=== PATIENT | female | born 1990 | race Caucasian/White ===

== ENCOUNTER 2021-09-03 09:52 | Inpatient (IN) | payer SELFPAY ==
[2021-09-03] MEDS ORDERED: OXYTOCIN 10 UNIT/1 ML INJ IM PRN (10:54)
[2021-09-03] MEDS ORDERED: ACETAMINOPHEN 325 MG TAB PO PRN ×2 (10:54→22:59)
[2021-09-03] MEDS ORDERED: TERBUTALINE 1 MG/1 ML INJ SUB-Q PRN (10:54)
[2021-09-03] MEDS ORDERED: LIDOCAINE (2%) 20 MG/1 ML VIAL 20 ML MDV INFILTRATI ONE ×2 (10:54→19:52)
[2021-09-03] MEDS ORDERED: ePHEDrine SULFATE 50 MG/1 ML INJ IV PRN ×2 (10:54→17:00)
[2021-09-03] MEDS ORDERED: LOPERAMIDE 2 MG CAP PO PRN (10:54)
[2021-09-03] MEDS ORDERED: MINERAL OIL 30 ML ORAL LIQD PO PRN (10:54)
[2021-09-03] MEDS ORDERED: miSOPROStol 200 MCG TAB PR PRN (10:54)
[2021-09-03] MEDS ORDERED: BUTORPHANOL 2 MG/1 ML INJ IV PRN ×2 (10:54)
[2021-09-03] MEDS ORDERED: NALOXONE 0.4 MG/1 ML INJ IV PRN (10:54)
[2021-09-03] MEDS ORDERED: ONDANSETRON 4 MG/2 ML INJ IV PRN ×2 (10:54→22:59)
[2021-09-03] MEDS ORDERED: CARBOPROST TROMETHAMINE 250 MCG/1 ML INJ IM PRN (10:54)
[2021-09-03] MEDS ORDERED: OXYTOCIN DRIP 30 UNITS/500 ML BAG IV SCH ×3 (11:00→23:00)
--- NOTE | 2021-09-03 11:44 | History and Physical Report ---
History of Present Illness Date of examination: 09/03/21 Date of admission: 09/03/21 09:52 Chief complaint: Presents for a scheduled Induction of Labor due to Postdates and Chronic Hypertension History of present illness: care at [facility], course complicated by a UTI (treated with Macrobid), and CHTN (no meds). Past History Past Medical History: [facility] ([facility]s [facility] 2 [facility]) Past Surgical History: no surgical history SPEECH/LANGUAGE THERAPIST History: abnormal PAP smear Family/Genetic History: none Social history: no significant social history - Obstetrical History Expected Date of Delivery: 08/26/21 Actual Gestation: 41 Week(s) 1 Day(s) : 4 Para: 3 Hx # Term Pregnancies: 3 Number of Living Children: 3 #1 Infant Gender: Female year: 2,[birth year] Birthweight: 3.175 kg Method of Delivery: Vaginal Gestational age at delivery: 40 Complications: none #2 Gender: Female year: 2,[birth year] Birthweight: 3.175 kg Method of Delivery: Vaginal Gestational age at delivery: 40 #3 Gender: Female year: 2,016 Birthweight: 3.175 kg Method of Delivery: Vaginal Gestational age at delivery: 40 Medications and Allergies Allergies Allergy/AdvReac Type Severity Reaction Status Date / Time No Known Allergies Allergy Unverified 09/03/21 11:36 Active Meds: Active Medications Acetaminophen (Acetaminophen 325 Mg Tab) 650 mg PO Q4H PRN PRN Reason: Pain, Mild (1-3) Butorphanol Tartrate (Butorphanol 2 Mg/1 Ml Inj) 1 mg IV Q2H PRN PRN Reason: Pain, Moderate(4-6) LABOR PAIN Butorphanol Tartrate (Butorphanol 2 Mg/1 Ml Inj) 2 mg IV Q2H PRN PRN Reason: Pain , Severe (7-10) Carboprost Tromethamine (Carboprost Tromethamine 250 Mcg/1 Ml Inj) 250 mcg IM ONCE PRN PRN Reason: Uterine Bleeding Ephedrine Sulfate (Ephedrine Sulfate 50 Mg/1 Ml Inj) 10 mg IV Q2M PRN PRN Reason: Hypotension Oxytocin/Sodium Chloride (Pitocin/Ns 30 Unit/500ml) 30 units in 500 mls @ 4 mls/hr IV TITR SUSIE; Protocol Lactated Ringer's (Lactated Ringers) 1,000 mls @ 125 mls/hr IV DIRECT SUSIE Oxytocin/Sodium Chloride (Pitocin/Ns 30 Unit/500ml) 30 units in 500 mls @ 40 mls/hr IV TITR SUSIE; Protocol Lidocaine (Lidocaine (2%) 20 Mg/1 Ml Vial 20 Ml Mdv) 20 ml INFILTRATI ONCE ONE Stop: 09/03/21 10:55 Loperamide HCl (Loperamide 2 Mg Cap) 2 mg PO ONCE PRN PRN Reason: give with Hemabate Mineral Oil (Mineral Oil 30 Ml Oral Liqd) 30 ml PO QHS PRN PRN Reason: Constipation Misoprostol (Misoprostol 200 Mcg Tab) 800 mcg LA ONCE PRN PRN Reason: Uterine Bleeding Naloxone HCl (Naloxone 0.4 Mg/1 Ml Inj) 0.1 mg IV Q2MIN PRN PRN Reason: Res Rate </= 8 or 02 SAT < 92% Ondansetron HCl (Ondansetron 4 Mg/2 Ml Inj) 4 mg IV Q8H PRN PRN Reason: Nausea And Vomiting Oxytocin (Oxytocin 10 Unit/1 Ml Inj) 10 unit IM ONCE PRN PRN Reason: Uterine Bleeding Terbutaline Sulfate (Terbutaline 1 Mg/1 Ml Inj) 0.25 mg SUB-Q ONCE PRN PRN Reason: Hyperstimulation/Hypertonicity Review of Systems All systems: negative - Vital Signs Vital signs: Vital Signs Pulse BP Pulse Ox 56 L 119/75 99 09/03/21 10:40 09/03/21 10:40 09/03/21 10:40 Temp Pulse Resp BP Pulse Ox 98.5 F 59 L 18 119/75 98 09/03/21 11:35 09/03/21 11:35 09/03/21 11:35 09/03/21 11:35 09/03/21 11:35 - Physical Exam Breasts: Positive: normal Cardiovascular: Regular rate Lungs: Positive: Clear to auscultation, Normal air movement Abdomen: Positive: normal appearance, soft, normal bowel sounds Genitourinary (Female): Positive: normal external genitalia, normal perenium Vagina: Positive: normal moisture Uterus: Positive: enlarged - Obstetrical FHR: category 1 Uterine Contraction Monitor Mode: External Cervical Dilatation: 2 (intact, vtx) Cervical Effacement Percentage: 50 station: -3 Uterine Contraction Pattern: Irregular Uterine Tone Measurement Phase: Resting Uterine Contraction Intensity: Mild Results All other labs normal. Assessment and Plan A: IUP @ 41 1/7 Weeks Category I Tracing CHTN GBS Negative P: Admit to L&D Per Routine Orders PIH Labs Pitocin Induction
[2021-09-03 12:00] LABS: Hematocrit 35.5 % (30.3-42.9); Mean Corpuscular HGB Conc 34 % (30-34); Mean Corpuscular Volume 90 fl (79-97); Platelet Count 213 K/mm3 (140-440); Red Blood Count 3.93 M/mm3 (3.65-5.03); Red Cell Distribution Width 13.7 % (13.2-15.2)
[2021-09-03 12:18] LABS: Alanine Aminotransferase 12 units/L (7-56); Uric Acid 4.8 mg/dL (3.5-7.6)
[2021-09-03] MEDS: LACTATED RINGERS 1,000 ML IV SCH ×4 (12:30→18:24)
[2021-09-03] MEDS ORDERED: ePHEDrine SULFATE 50 MG/1 ML INJ ONE (16:19)
--- NOTE | 2021-09-03 16:28 | Anesthesia Consultation ---
Anesthesia Consult and Med Hx Date of service: 09/03/21 - Airway Anesthetic Teeth Evaluation: Good ROM Head & Neck: Adequate Mental/Hyoid Distance: Adequate Mallampati Class: Class II Intubation Access Assessment: Probably Good - Pulmonary Exam CTA: Yes - Cardiac Exam Cardiac Exam: RRR - Pre-Operative Health Status ASA Pre-Surgery Classification: ASA3 Proposed Anesthetic Plan: Epidural - Pulmonary Hx Asthma: No - Cardiovascular System Hx Hypertension: Yes - Central Nervous System Hx Seizures: No Hx Psychiatric Problems: No - Endocrine Hx Renal Disease: No Hx Hypothyroidism: No Hx Hyperthyroidism: No - Hematic Hx Anemia: No Hx Sickle Cell Disease: No - Other Systems Hx Alcohol Use: No
[2021-09-03] MEDS ORDERED: NALOXONE 2 MG/2 ML INJ IV PRN (17:00)
[2021-09-03] MEDS ORDERED: fentaNYL-BUPIV 2 MCG/ML-0.125% 200 MCG/100 ML BAG EPIDURAL SCH (17:00)
[2021-09-03] MEDS ORDERED: WITCH HAZEL/ GLYCERIN PAD TP PRN (22:59)
[2021-09-03] MEDS ORDERED: BENZOCAINE/MENTHOL 20/0.5% TOP SPRAY 56 GM TP PRN (22:59)
[2021-09-03] MEDS ORDERED: LANOLIN/ZINC/DIMETHICONE (LANSINOH) 7 GM TP PRN ×2 (22:59)
[2021-09-03] MEDS ORDERED: PROMETHAZINE 25 MG RECT SUPP PR PRN (22:59)
[2021-09-03] MEDS ORDERED: diphenhydrAMINE 25 MG CAP PO PRN (22:59)
[2021-09-03] MEDS ORDERED: PROMETHAZINE 25 MG TAB PO PRN (22:59)
[2021-09-03] MEDS ORDERED: MAGNESIUM HYDROXIDE (MOM) ORAL LIQD UDC PO PRN (22:59)
[2021-09-03] MEDS ORDERED: oxyCODONE /ACETAMINOPHEN 5-325MG TAB PO PRN (22:59)
[2021-09-03] MEDS ORDERED: HYDROCORTISONE 25 MG RECTAL SUPP PR PRN (22:59)
--- NOTE | 2021-09-03 23:02 | Procedure Note ---
OB Delivery Note - Delivery Date of Delivery: 09/03/21 Surgeon: MAILE NAVA JR Estimated blood loss: 300cc - Vaginal Delivery presentation: vertex Delivery position: OA Intrapartum events: none Delivery induction: oxytocin Delivery augmentation: rupture of membranes Delivery monitor: external FHT, external uterine Delivery placenta: spontaneous Episiotomy: none Delivery laceration: 2nd degree Delivery repair: vicryl Anesthesia: epidural Delivery comments: Status post spontaneous vaginal delivery of male at 2238. Weight 3210 g. Height 20 inches. Apgars 8/9. Second degree perineal repair with 2-0 Vicryl. Fundus firm below the umbilicus. - A at 1 minute: 8 at 5 minutes: 9 Gender: Male
--- NOTE | 2021-09-04 08:51 | Progress Note ---
Assessment and Plan A: S/P P: Continue routine pp orders Awaiting H&H results D/C home tomm if stable Subjective - Subjective Date of service: 09/04/21 Principal diagnosis: s/p Patient reports: appetite normal, voiding normally, pain well controlled, ambulating normally [place]: doing well, bottle feeding Objective - Vital Signs Latest vital signs: Vital Signs Temp Pulse Resp BP BP Pulse Ox Pulse Ox 09/04/21 04:27 98.6 F 69 20 107/53 95 09/04/21 00:32 98.7 F 65 18 130/73 98 09/04/21 00:25 98.7 F 64 18 129/104 99 09/03/21 23:57 70 99 09/03/21 23:53 64 135/66 09/03/21 23:52 66 98 09/03/21 23:47 64 99 09/03/21 23:42 71 98 09/03/21 23:37 70 98 09/03/21 23:32 77 98 09/03/21 23:30 98 09/03/21 23:27 68 98 09/03/21 23:23 70 136/66 09/03/21 23:22 69 98 09/03/21 23:17 73 99 09/03/21 23:12 74 99 09/03/21 23:07 76 99 09/03/21 23:02 71 98 09/03/21 22:57 79 99 09/03/21 22:53 78 130/61 09/03/21 22:52 77 99 09/03/21 22:47 98.3 F 77 99 09/03/21 22:42 76 99 09/03/21 22:37 80 99 09/03/21 22:32 74 100 09/03/21 22:27 78 99 09/03/21 22:22 68 136/69 98 09/03/21 22:17 68 99 09/03/21 22:12 66 98 09/03/21 22:07 64 98 09/03/21 22:06 63 130/69 09/03/21 22:02 63 98 09/03/21 21:57 67 99 09/03/21 21:52 68 98 09/03/21 21:51 62 120/62 09/03/21 21:47 63 98 09/03/21 21:42 64 99 09/03/21 21:37 67 98 09/03/21 21:36 63 122/63 09/03/21 21:32 66 98 09/03/21 21:27 68 98 09/03/21 21:22 61 98 09/03/21 21:21 63 122/63 09/03/21 21:17 62 98 09/03/21 21:12 62 98 09/03/21 21:07 63 98 09/03/21 21:06 63 119/60 09/03/21 21:02 65 98 09/03/21 20:57 74 98 09/03/21 20:52 69 98 09/03/21 20:51 67 119/59 09/03/21 20:47 64 98 09/03/21 20:42 64 99 09/03/21 20:37 65 98 09/03/21 20:36 68 116/61 09/03/21 20:32 63 98 09/03/21 20:27 63 99 09/03/21 20:22 68 99 09/03/21 20:21 59 L 118/58 09/03/21 20:17 63 99 09/03/21 20:12 67 99 09/03/21 20:07 65 99 09/03/21 20:06 62 126/62 09/03/21 20:02 61 99 09/03/21 19:57 66 99 09/03/21 19:52 61 99 09/03/21 19:51 60 124/58 09/03/21 19:47 62 99 09/03/21 19:42 62 99 09/03/21 19:37 66 99 09/03/21 19:36 63 120/57 09/03/21 19:32 61 99 09/03/21 19:27 62 99 09/03/21 19:22 65 99 09/03/21 19:21 62 112/56 09/03/21 19:17 65 99 09/03/21 19:12 74 99 09/03/21 19:10 100 09/03/21 19:08 98.3 F 20 100 09/03/21 19:07 66 130/61 100 09/03/21 19:06 66 95/43 09/03/21 19:02 63 100 09/03/21 18:57 63 99 09/03/21 18:52 64 102/54 99 09/03/21 18:47 66 100 09/03/21 18:42 63 99 09/03/21 18:37 63 99 09/03/21 18:36 67 114/55 09/03/21 18:32 73 99 09/03/21 18:27 65 99 09/03/21 18:22 70 100 09/03/21 18:20 67 124/58 09/03/21 18:18 63 116/56 09/03/21 18:17 64 125/59 99 09/03/21 18:15 67 99/57 09/03/21 18:12 65 89/54 99 09/03/21 18:10 62 91/52 09/03/21 18:08 62 95/54 09/03/21 18:07 62 89/52 99 09/03/21 18:05 97.8 F 09/03/21 18:04 60 105/55 09/03/21 18:03 63 103/59 09/03/21 18:02 61 99 09/03/21 18:00 64 96/48 09/03/21 17:58 63 106/51 09/03/21 17:57 67 100 09/03/21 17:56 65 116/59 09/03/21 17:55 61 104/55 09/03/21 17:53 63 114/55 09/03/21 17:52 64 99 09/03/21 17:50 63 94/51 09/03/21 17:48 63 99/52 09/03/21 17:47 64 95/52 99 09/03/21 17:45 64 111/55 09/03/21 17:43 65 97/54 09/03/21 17:42 66 100 09/03/21 17:41 62 128/62 09/03/21 17:38 60 95/50 09/03/21 17:37 61 111/54 99 09/03/21 17:34 61 93/50 09/03/21 17:32 61 102/54 99 09/03/21 17:30 61 98/56 09/03/21 17:28 63 94/53 09/03/21 17:27 63 99 09/03/21 17:26 67 101/57 09/03/21 17:24 63 103/55 09/03/21 17:22 73 98/55 99 09/03/21 17:20 64 107/58 09/03/21 17:18 67 111/55 09/03/21 17:17 72 99 09/03/21 17:16 69 106/57 09/03/21 17:14 68 107/55 09/03/21 17:12 70 105/57 99 09/03/21 17:10 74 111/59 09/03/21 17:08 74 111/55 09/03/21 17:07 70 120/59 99 09/03/21 17:04 73 127/71 09/03/21 17:02 67 99 09/03/21 17:01 66 124/66 09/03/21 16:58 62 104/62 09/03/21 16:57 65 100 09/03/21 16:56 66 111/56 09/03/21 16:55 68 119/56 09/03/21 16:53 69 118/67 09/03/21 16:52 68 100 09/03/21 16:51 67 126/59 09/03/21 16:47 76 99 09/03/21 16:42 68 99 09/03/21 16:37 67 99 09/03/21 16:32 64 99 09/03/21 16:27 71 99 09/03/21 16:25 67 153/84 09/03/21 16:22 65 99 09/03/21 16:17 62 99 09/03/21 16:05 68 99 09/03/21 16:00 73 99 09/03/21 15:55 72 99 09/03/21 15:53 66 145/77 09/03/21 15:50 69 99 09/03/21 15:45 64 99 09/03/21 15:40 65 99 09/03/21 15:35 71 99 09/03/21 15:30 70 98 09/03/21 15:25 61 98 09/03/21 15:23 62 120/68 09/03/21 15:20 66 97 09/03/21 15:15 64 98 09/03/21 15:10 60 98 09/03/21 15:05 63 98 09/03/21 15:04 98.3 F 09/03/21 15:00 72 98 09/03/21 14:55 67 99 09/03/21 14:54 63 122/70 09/03/21 14:50 64 97 09/03/21 14:45 71 97 09/03/21 14:40 63 98 09/03/21 14:35 65 98 09/03/21 14:30 76 96 09/03/21 14:25 71 97 09/03/21 14:24 63 120/74 09/03/21 14:20 63 98 09/03/21 14:15 65 97 09/03/21 14:10 64 97 09/03/21 14:05 64 96 09/03/21 14:00 59 L 98 09/03/21 13:55 64 97 09/03/21 13:54 60 129/67 09/03/21 13:50 65 96 09/03/21 13:45 61 97 09/03/21 13:40 64 96 09/03/21 13:35 61 95 09/03/21 13:30 55 L 99 09/03/21 13:25 58 L 99 09/03/21 13:24 54 L 143/78 09/03/21 13:20 63 100 09/03/21 13:15 54 L 99 09/03/21 13:10 64 99 09/03/21 13:05 60 98 09/03/21 13:00 60 99 09/03/21 12:55 54 L 99 09/03/21 12:53 54 L 121/70 09/03/21 12:50 59 L 99 09/03/21 12:45 61 99 09/03/21 12:40 56 L 100 09/03/21 12:35 58 L 99 09/03/21 12:30 58 L 99 09/03/21 12:25 59 L 99 09/03/21 12:23 61 112/67 09/03/21 12:20 59 L 98 09/03/21 12:15 58 L 98 09/03/21 12:10 59 L 98 09/03/21 12:05 57 L 99 09/03/21 12:00 61 99 09/03/21 11:55 60 98 09/03/21 11:53 57 L 124/69 09/03/21 11:50 63 98 09/03/21 11:45 61 99 09/03/21 11:40 61 98 09/03/21 11:35 98.5 F 60 18 119/75 99 09/03/21 11:30 62 99 09/03/21 11:25 58 L 99 09/03/21 11:23 61 110/59 09/03/21 11:20 58 L 99 09/03/21 11:15 56 L 99 09/03/21 11:10 58 L 99 09/03/21 11:05 58 L 98 09/03/21 11:00 61 98 09/03/21 10:55 59 L 99 09/03/21 10:50 56 L 99 09/03/21 10:45 60 99 09/03/21 10:40 57 L 119/75 99 Intake and Output 09/03/21 09/04/21 09/04/21 22:59 06:59 14:59 Intake Total 3060.000 600 Output Total 1100 400 Balance 1960.000 200 Intake: IV 3060.000 Lactated Ringers 1,000 ml 3060.000 @ 125 mls/hr IV DIRECT SUSIE Rx#:[id number] Oral 240 Intake, Free Water 360 Output: Urine 1100 400 Indwelling Catheter 1000 Uretheral ([place]) 100 Void 400 Other: Total, Intake Amount 240 Total, Output Amount 1000 400 # Voids Void 1 Estimated Blood Loss 300 - Exam Breasts: Present: normal Abdomen: Present: normal appearance, soft, normal bowel sounds Vulva: both: normal Uterus: Present: normal, firm, fundal height below umbilicus Extremities: Present: normal Incision: Present: normal, intact - Labs Labs: Abnormal lab results 09/03/21 Range/Units 11:16 Creatinine 0.3 L (0.6-1.2) mg/dL
--- NOTE | 2021-09-04 09:55 | Discharge Summary ---
Providers - Providers Date of Admission: 09/03/21 09:52 Date of discharge: 09/05/21 Attending physician: MAILE NAVA JR, MD Primary care physician: LIABILITY CLAIMS REPRESENTATIVE Hospitalization Reason for admission: induction of labor Delivery: Episiotomy: none Laceration: 2nd degree Incision: normal, intact Other procedures: none complications: none Discharge diagnosis: IUP at term delivered [place] baby: male Hospital course: Pt was admitted to [facility] for an IOL for postdates and CHTN. She had a w/o pp complications. See h&p, delivery summary, and pp notes. Condition at discharge: Stable Disposition: 01 HOME / SELF CARE / HOMELESS Plan - Provider Discharge Summary Activity: routine, no sex for 6 weeks, no heavy lifting 4 weeks, no strenuous exercise Diet: routine Instructions: routine Additional instructions: [] Smoking cessation referral if applicable(refer to patient education folder for contact #) [] Refer to [facility] Call your doctor immediately for: * Fever > 100.5 * Heavy vaginal bleeding ( >1 pad per hour) * Severe persistent headache * Shortness of breath * Reddened, hot, painful area to leg or breast * Drainage or odor from incision. * Keep incision clean and dry at all times and follow doctor's instructions regarding bathing/showering - Follow up plan Follow up: PRIMARY CAREMD [Primary Care Provider] - 6 Weeks
--- NOTE | 2021-09-04 13:15 | Post Anesthesia Evaluation ---
- Post Anesthesia Evaluation Patient Participated: Yes Airway Patent: Yes Stable Respiratory Function: Yes Nausea/Vomiting: No Temp > 96.8F: Yes Pain Manageable: Yes Adequeate Hydration: Yes Anesthesia Complications: No Block Receding Appropriately: Yes
[2021-09-04] MEDS: IBUPROFEN 600 MG TAB PO SCH ×2 (17:51→18:23)
[2021-09-04 18:56] LABS: Hematocrit 32.8 % (30.3-42.9); Hemoglobin 11.3 gm/dl (10.1-14.3)
[2021-09-05] MEDS: IBUPROFEN 600 MG TAB PO SCH ×2 (00:43→05:43)
[2021-09-05 12:42] VITALS: BP 118/62
== END 2021-09-05 13:45 | disposition home or self-care (01) | DRG 807 ==
LOC: LD 09:52 → OB 09-04 00:37
PROVIDERS: ADMIT Obstetrics & Gynecology; ATTEND Obstetrics & Gynecology
PROC: 0KQM0ZZ Repair Perineum Muscle, Open Approach (ICD-10-PCS; principal; 2021-09-03)
PROC: 10E0XZZ Delivery of Products of Conception, External Approach (ICD-10-PCS; 2021-09-03)
PROC: 3E0R3BZ Introduction of Anesthetic Agent into Spinal Canal, Percutaneous Approach (ICD-10-PCS; 2021-09-03)
PROC: 00HU33Z Insertion of Infusion Device into Spinal Canal, Percutaneous Approach (ICD-10-PCS; 2021-09-03)
DX: O16.4 Unspecified maternal hypertension, complicating childbirth (principal); Z37.0 Single live birth; Z3A.41 41 weeks gestation of pregnancy; O70.1 Second degree perineal laceration during delivery; Z20.822 Contact with and (suspected) exposure to COVID-19
CPT/HCPCS: 36415; 82565; 83615; 84450; 84460; 84550; 85014; 85018; 85027; 86850; 86900; 86901; G0378; J0595; J2590; J7120; U0003